=== PATIENT | female | born 1945 | race Caucasian/White ===

== ENCOUNTER → 2019-08-27 | Outpatient (CLI) | payer MEDICARE, OTHER ==
--- NOTE | 2019-08-27 15:53 | RAD ---
EXAM: Left foot, 3 views. HISTORY: Pain. COMPARISON: None. FINDINGS: 3 views of the left foot are obtained. There is no acute fracture, dislocation or subluxation. There are small corticated ossicles along the base of the fifth metatarsal and lateral mid foot. There is a small plantar spur and enthesopathy at Achilles tendon insertion. There is degenerative spurring along the tarsometatarsal joints. IMPRESSION: 1. No acute osseous finding. 2. Mild midfoot osteoarthritis. 3. Small plantar spur. Electronically signed by: Adore Oh MD (08/27/2019 3:50 PM) [facility] [email or web address]
== END | disposition home or self-care (01) ==
LOC: PMG 12:08
PROVIDERS: ATTEND Family Medicine
DX: M19.072 Primary osteoarthritis, left ankle and foot (principal); M77.8 Other enthesopathies, not elsewhere classified; M25.775 Osteophyte, left foot
CPT/HCPCS: 73630

== ENCOUNTER → 2020-05-26 | Outpatient (CLI) | payer MEDICARE, OTHER ==
--- NOTE | 2020-05-26 15:45 | RAD ---
EXAM: Soft tissue ultrasound, left flank. HISTORY: Palpable focus left flank. COMPARISON: None. FINDINGS: Sonography of the palpable focus of concern along the left flank was performed. This reveals a hypoechoic nodule at the level of the deep fascia measuring 7 x 7 x 3 mm. Its echogenicity is similar to subcutaneous fat. No internal flow is detected on Doppler. IMPRESSION: 1. The palpable focus corresponds with a 7 mm fat echogenicity nodule at the level of the deep fascia. This may represent an intramuscular lipoma, or fat herniating through the fascia. Recommend ongoing clinical follow-up of palpable foci. If this is not clinically consistent with a lipoma or small muscular hernia, MRI could further evaluate. Electronically signed by: Rigo Kaufman MD (05/26/2020 3:42 PM) [id number]
== END ==
LOC: US 14:38
PROVIDERS: ATTEND Physician Assistant Medical
DX: R22.2 Localized swelling, mass and lump, trunk (principal)
CPT/HCPCS: 76881

== ENCOUNTER 2020-08-15 16:21 | Emergency (ER) | payer MEDICARE ==
[~2020-08-15] VITALS: Ht 175.3 cm; Wt 80.4 kg
[~2020-08-15 16:21] MED LIST changes: -DIAZ2TAB PO; -PRED20TA PO
[2020-08-15 16:41] VITALS: BP 153/66
[2020-08-15] MEDS ORDERED: DIAZ2TAB PO (17:38)
[2020-08-15] MEDS ORDERED: PRED20TA PO (17:38)
--- NOTE | 2020-08-15 17:38 | PHYS DOC ---
Past History Past Medical History: COPD, Hypertension, Other Past Surgical History: Cholecystectomy Additional Past Surgical Histo: Cradiac Stents X2 Alcohol Use: None General Adult HPI: HPI: Patient is a [age] year old [sex] who presents with [] Review of Systems: Review of Systems: Constitutional: Denies fever or chills Eyes: Denies change in visual acuity HENT: Denies nasal congestion or sore throat Respiratory: Denies cough or shortness of breath Cardiovascular: Denies chest pain or edema GI: Denies abdominal pain, nausea, vomiting, bloody stools or diarrhea : Denies dysuria Musculoskeletal: Denies back pain or joint pain Integument: Denies rash Neurologic: Denies headache, focal weakness or sensory changes Endocrine: Denies polyuria or polydipsia Lymphatic: Denies swollen glands Psychiatric: Denies depression or anxiety Heart Score: Risk Factors: Risk Factors: DM, Current or recent (<one month) smoker, HTN, HLP, family history of CAD, obesity. Risk Scores: Score 0 - 3: 2.5% MACE over next 6 weeks - Discharge Home Score 4 - 6: 20.3% MACE over next 6 weeks - Admit for Clinical Observation Score 7 - 10: 72.7% MACE over next 6 weeks - Early Invasive Strategies Allergies: Allergies: Allergies Coded Allergies Type Severity Reaction Last Updated Verified cyclobenzaprine Allergy Unknown 08/09/20 Yes tramadol Allergy Unknown 08/09/20 Yes Physical Exam: PE: Constitutional: Well developed, well nourished, no acute distress, non-toxic appearance. [] HENT: Normocephalic, atraumatic, bilateral external ears normal, oropharynx moist, no oral exudates, nose normal. [] Eyes: PERRLA, EOMI, conjunctiva normal, no discharge. [] Neck: Normal range of motion, no tenderness, supple, no stridor. [] Cardiovascular:Heart rate regular rhythm, no murmur [] Lungs & Thorax: Bilateral breath sounds clear to auscultation [] Abdomen: Bowel sounds normal, soft, no tenderness, no masses, no pulsatile masses. [] Skin: Warm, dry, no erythema, no rash. [] Back: No tenderness, no CVA tenderness. [] Extremities: No tenderness, no cyanosis, no clubbing, ROM intact, no edema. [] Neurologic: Alert and oriented X 3, normal motor function, normal sensory function, no focal deficits noted. [] Psychologic: Affect normal, judgement normal, mood normal. [] EKG: EKG: [] Radiology/Procedures: Radiology/Procedures: [] Course & Med Decision Making: Course & Med Decision Making Pertinent Labs and Imaging studies reviewed. (See chart for details) [] Dragon Disclaimer: Dragon Disclaimer: This electronic medical record was generated, in whole or in part, using a voice recognition dictation system. Departure Departure: Impression: Primary Impression: Back pain Qualified Codes: M54.9 - Dorsalgia, unspecified Additional Impressions: COVID-19 Anxiety Disposition: 01 DC HOME SELF CARE/HOMELESS Condition: STABLE Referrals: ERIC ALEGRIA MD (PCP) Patient Instructions: Anxiety and Panic Attacks, [id number], Back Pain, Adult, [id number], Viral Syndrome Additional Instructions: You have been tested for or diagnosed with COVID-19. It is an infection caused by a new type of coronavirus. COVID-19 will cause cold-like or mild flu symptoms in most. It can cause more severe symptoms like problems breathing in some. There is no treatment for COVID-19. The body will clear the infection over time. Self-care will help to ease discomfort. Steps to Take: Self-Care Rest as needed. Healthy habits may help you feel better. Steps include: Choose healthy foods including fruits and vegetables. Drink water throughout the day. Get plenty of sleep each night. If you smoke, try to quit. It may ease breathing. Avoid alcohol. Keep Others Healthy The virus can spread to others. Droplets are released every time you sneeze or cough. The droplets can get into the mouth, nose, or eyes of people near you and lead to infection. To lower the chances of spreading COVID-19 to others: Stay at home until your doctor has said it is safe to leave. If you tested positive this will mean staying isolated until both of the following are true: At least 7 days have passed since the start of illness. You are free of fever for at least 72 hours without the use of medicine. During this time: - Avoid public areas, events, or transportation. Do not return to work or school until your doctor has said it is safe to do so. - Call ahead if you need to go to a medical center. Let them know you may have COVID-19. It will help them guide you where to go. They may also ask you to wear a facemask when you come to the office. - If you call for emergency medical services, let them know you may have COVID- 19. While at home: - Try to avoid close contact with others. Stay about 6 feet away. - If possible, spend most of your time in a separate room from others. - Use a face mask if you will be in close contact with others such as sharing a room or vehicle. - Have someone wipe down common surfaces in the home. Use household heliarc welder every day on areas like doorknobs, counters, or sinks. - Cough or sneeze into a tissue. Throw the tissue away right after use. If a tissue is not available, cough or sneeze into your elbow. - Wash your hands often. Wash them after sneezing or coughing. Use soap and water and wash for at least 20 seconds. Alcohol based hand fur dry cleaner hand can be used if soap and water is not available. - Do not prepare food for others. Avoid sharing personal items like forks, spoons, or toothbrushes. - Avoid close contact with pets while you are sick. There is no evidence of the virus passing to pets. This is a safety step until more is known about this virus. Isolation can be frustrating. Social interaction can help. Keep in touch with friends and family through phone and tech options. You can still interact with others in y our home, just keep a safe distance of about 6 feet. Follow-up: Your doctors office will check in with you to see if there are any changes in your health. You may be asked to keep track of symptoms to share with them. They will also let you know when you are clear to be in public again. Problems to Look Out For: Contact your doctor if your recovery is not going as you expect. Get emergency care if you have problems such as: - Trouble breathing - Nonstop chest pain or pressure - Changes in awareness, confusion, or problems waking - Lips or face have bluish color - Worsening of symptoms If you think you have an emergency, call for emergency medical services right away. As taken from [facility] Prednisone (PREDNISONE) 20 Mg Tablet 2 TAB PO DAILY for Back pain, #8 TAB Start this prescription tomorrow, Friday08/16/2020 Prov: ROSA ISELA VELEZ DO 08/15/20 Diazepam (VALIUM) 2 Mg Tablet 2 MG PO TID PRN for ANXIETY, #10 TAB Prov: ROSA ISELA VELEZ DO 08/15/20 ROSA ISELA VELEZ DO Aug 15, 2020 17:38
[2020-08-15] MEDS ORDERED: diazePAM 2 MG TABLET. PO ONE (17:45)
[2020-08-15] MEDS ORDERED: DEXAMETHASONE 4 MG TABLET PO ONE (17:45)
== END 2020-08-15 18:22 | disposition home or self-care (01) ==
LOC: MERGE 16:21 → ER 16:21
DX: U07.1 COVID-19 (principal); M54.9 Dorsalgia, unspecified; F41.9 Anxiety disorder, unspecified; J44.9 Chronic obstructive pulmonary disease, unspecified; I10 Essential (primary) hypertension; Z88.8 Allergy status to other drugs, medicaments and biological substances
CPT/HCPCS: 99283; J8540

== ENCOUNTER → 2020-08-15 | Emergency (ER) | payer MEDICARE, OTHER ==
[~2020-08-15] MED LIST: AZIT250T6 PO; DIAZ2TAB PO; PRED20TA PO
== END | disposition left against medical advice (07) ==
LOC: ER 16:21
DX: R06.02 Shortness of breath (principal); Z53.21 Procedure and treatment not carried out due to patient leaving prior to being seen by health care provider

== ENCOUNTER 2021-01-17 09:00 | Emergency (ER) | payer MEDICARE ==
[~2021-01-17] VITALS: Ht 170.2 cm; Wt 87.0 kg
[~2021-01-17 09:00] MED LIST changes: +DIAZ2TAB PO; +PRED20TA PO
--- NOTE | 2021-01-17 09:26 | EKG ---
[address] [address] Test Date: 2021-01-17 Test Time: 09:20:06 Pat Name: ABBE WHEELER Department: Room: Gender: F Ocular Pathologist: BARBARA : 1945 Requested By: XOCHITL ARELLANO Order Number: [id number] Reading MD: Measurements Intervals [place] Rate: 64 P: GA: QRS: 19 QRSD: 82 T: 11 QT: 412 QTc: 429 Interpretive Statements IRREGULAR RHYTHM, NO P-WAVE FOUND OTHERWISE NORMAL ECG RI6.02 No previous ECG available for comparison
--- NOTE | 2021-01-17 09:56 | PHYS DOC ---
Past History Past Medical History: A-Fib, CAD, COPD, Hypertension, Other Past Surgical History: Cholecystectomy Additional Past Surgical Histo: Cradiac Stents X2, carotic endardarectomy Smoking: Non-smoker Alcohol Use: None Drug Use: None General Adult EDM: Chief Complaint: CHEST PAIN HPI: HPI: Patient is a 75-year-old female coming in for chest pain in her low sternal area. Says the pain woke her from sleep around 4 AM, about 5 hours prior to arrival. Patient states the pain is better now. Has a history of sternal pain (which is exacerbated by weather changes) after a fracture sustained during CPR in 2019. Patient had CPR after losing pulses during a procedure on her carotid artery. She was diagnosed with A. fib and started on Eliquis 2 days ago at [facility]. Patient states she was found to be in A. fib after she went to have a ophthalmic procedure and was told she had irregular heartbeat. Patient also sta rajinder that today and 2 days ago she was feeling shortness of breath with walking but denied any chest pain at that time. Also states that today when she woke up she felt cold and clammy. Denies any nausea, vomiting, changes in urination, diarrhea or blood in her stools. Review of Systems: Review of Systems: All other systems within normal limits except for as noted in the HPI Allergies: Allergies: Allergies Coded Allergies Type Severity Reaction Last Updated Verified tramadol Allergy Unknown 01/17/21 Yes Physical Exam: PE: Constitutional: Well developed, well nourished, no acute distress, non-toxic appearance. [] HENT: Normocephalic, atraumatic, bilateral external ears normal, nose normal. [] Eyes: PERRLA, conjunctiva normal, no discharge. [] Neck: No rigidity, supple, no stridor. [] Cardiovascular: Regular rate and rhythm, brisk cap refill [] Lungs & Thorax: Non labored symmetric respirations, no tachypnea or respiratory distress [] Abdomen: Soft, nondistended. Skin: Warm, dry, no erythema, no rash. [] Back: Unremarkable Extremities: No deformities, range of motion grossly intact, no lower extremity edema [] Neurologic: Alert and oriented X 3, no focal deficits noted. [] Psychologic: Affect normal, judgement normal, mood normal. [] Current Patient Data: Vital Signs: Vital Signs Date Time Temp Pulse Resp B/P (MAP) Pulse Ox O2 Delivery O2 Flow Rate FiO2 01/17/21 09:16 97.8 60 19 107/43 (64) 95 EKG: EKG: Irregularly irregular rhythm, heart rate 64 bpm, normal axis, no ST elevation or depression. [] Radiology/Procedures: Radiology/Procedures: XR CHEST 2V History: Reason: chest pain / Spl. Instructions: / History: Comparison: None. Findings: No consolidation or pleural effusion. Normal heart size. No pneumothorax. Impression: 1. No acute cardiopulmonary process.[] Heart Score: C/O Chest Pain: Yes HEART Score for Chest Pain: HEART Score for Chest Pain Response (Comments) Value History Slighlty/Non-Suspicious 0 ECG Normal 0 Age > 65 2 Risk Factors >3 Risk Factors or Hx CAD 2 Troponin < Normal Limit 0 Total 4 Risk Factors: Risk Factors: DM, Current or recent (<one month) smoker, HTN, HLP, family history of CAD, obesity. Risk Scores: Score 0 - 3: 2.5% MACE over next 6 weeks - Discharge Home Score 4 - 6: 20.3% MACE over next 6 weeks - Admit for Clinical Observation Score 7 - 10: 72.7% MACE over next 6 weeks - Early Invasive Strategies Course & Med Decision Making: Course & Med Decision Making Pertinent Labs and Imaging studies reviewed. (See chart for details) Patient daughter states that she has a known history of renal insufficiency and heart failure. Has a follow-up appoint with a microcomputer technician in 5 days [] Jazmyne Disclaimer: Jazmyne Disclaimer: This electronic medical record was generated, in whole or in part, using a voice recognition dictation system. Departure Departure: Impression: Primary Impression: Mid sternal chest pain Disposition: 01 DC HOME SELF CARE/HOMELESS Condition: STABLE Referrals: ERIC ALEGRIA MD (PCP) Patient Instructions: Chest Pain (Nonspecific)-Brief XOCHITL ARELLANO MD Jan 17, 2021 09:56
[2021-01-17 10:00] LABS: BASO # 0.1 x10^3/uL (0.0-0.2); BASO % 1 % (0-3); EOS # 0.1 x10^3/uL (0.0-0.7); EOS % 2 % (0-3); HEMATOCRIT 35.6 % (36.0-47.0); HEMOGLOBIN 11.8 g/dL (12.0-15.5); LYMPH # 1.5 x10^3/uL (1.0-4.8); LYMPH % 26 % (24-48); MEAN CORPUSCULAR HEMOGLOBIN 30 pg (25-35); MEAN CORPUSCULAR HGB CONC 33 g/dL (31-37); MEAN CORPUSCULAR VOLUME 90 fL (79-100); MONO # 0.5 x10^3/uL (0.0-1.1); MONO % 9 % (0-9); NEUT # 3.7 x10^3uL (1.8-7.7); NEUT % 63 % (31-73); PLATELET COUNT 173 x10^3/uL (140-400); RED BLOOD COUNT 3.95 x10^6/uL (3.50-5.40); RED CELL DISTRIBUTION WIDTH 14.6 % (11.5-14.5)
--- NOTE | 2021-01-17 10:04 | RAD ---
XR CHEST 2V History: Reason: chest pain / Spl. Instructions: / History: Comparison: None. Findings: No consolidation or pleural effusion. Normal heart size. No pneumothorax. Impression: 1. No acute cardiopulmonary process. Electronically signed by: Néstor Durham DO (01/17/2021 10:01 AM) [email or web address]
[2021-01-17 10:13] LABS: CALCIUM 9.4 mg/dL (8.5-10.1); CREATININE 1.5 mg/dL (0.6-1.0); POTASSIUM 3.9 mmol/L (3.5-5.1)
[2021-01-17 10:25] LABS: ALBUMIN 3.7 g/dL (3.4-5.0); ALBUMIN/GLOBULIN RATIO 1.2 (1.0-1.7); TOTAL BILIRUBIN 0.4 mg/dL (0.2-1.0); TOTAL PROTEIN 6.9 g/dL (6.4-8.2)
[2021-01-17 11:15] VITALS: BP 123/54
== END 2021-01-17 12:00 | disposition home or self-care (01) ==
LOC: ER 09:00
DX: R07.2 Precordial pain (principal); I48.91 Unspecified atrial fibrillation; I25.10 Atherosclerotic heart disease of native coronary artery without angina pectoris; J44.9 Chronic obstructive pulmonary disease, unspecified; I10 Essential (primary) hypertension; Z88.6 Allergy status to analgesic agent
CPT/HCPCS: 36415; 71046; 80053; 83690; 83880; 84484; 85025; 85610; 93005; 99285